=== PATIENT | female | born 1950 | race African-American/Black ===

== ENCOUNTER 2022-07-15 10:16 | Emergency (ER) | payer MEDICARE, SELFPAY ==
--- NOTE | 2022-07-15 10:25 | ED.LOWEXIN ---
HPI - Extremity Injury (Lower) General Chief Complaint: Extremity Injury, Lower Stated Complaint: Right Foot Pain Time Seen by Provider: 07/15/22 10:25 History of Present Illness HPI Narrative: Patient is a 72-year-old female who presents the urgent care with complaints of right foot pain for the last week. Patient states she noticed it after she wore a small heel to a wedding. Patient states the pain shoots all the way up to her right hip when she is walking. Patient has been using a cane to ambulate. Denies of any injury or fall. No other acute complaints. No acute distress noted. Patient aware of the plan of care. Some parts of this dictation were generated by voice recognition software and may contain typographical and/or grammatical inaccuracies. Related Data Home Medications Medication Instructions Recorded Confirmed losartan 50 mg-hydrochlorothiazide 1 tablet PO DAILY 07/15/22 07/15/22 12.5 mg tablet Allergies Allergy/AdvReac Type Severity Reaction Status Date / Time No Known Allergies Allergy Verified 07/15/22 10:41 Review of Systems Review of Systems: CONSTITUTIONAL: Denies fever, chills, or sweats. EYES: Denies visual changes, redness, or discharge. ENT: Denies rhinorrhea, congestion, sore throat, or otalgia. CARDIOVASCULAR: Denies chest pain, palpitations, or edema. RESPIRATORY: Denies cough or dyspnea. GASTROINTESTINAL: Denies abdominal pain, nausea, vomiting, or diarrhea. GENITOURINARY: Denies dysuria or hematuria. SKIN: Denies rash or itching. MUSCULOSKELETAL: Reports of right foot pain NEUROLOGIC: Denies headache, numbness, or weakness. All other systems reviewed are negative, except as documented in HPI. PMFSH Comments At the time of my signature, I reviewed and agree with the nursing past medical, surgical, social, and family history. There is no relevant family history pertinent to the patient complaint. Exam Narrative: GENERAL: This is a well-nourished, well-developed patient, in no apparent distress. HEAD: normocephalic, atraumatic. EYES: PERRL. Sclera clear/white. Vision is grossly intact. EARS: External ears normal NOSE: External nose normal with no obvious nasal discharge, nares without redness, no rhinorrhea. THROAT: Mucous membranes moist NECK: Neck supple SKIN: warm, intact with no suspicious lesions or rash, good texture and turgor. NEURO: awake, alert, and oriented to person, place and time. There were no obvious focal neurologic abnormalities. EXTREMITIES: Mild tenderness and edema noted to the plantar aspect of the right foot. Pain exacerbated with weightbearing or ambulation. Positive strong right pedal pulse with capillary refill less than 2 seconds. No obvious deformity, erythema or ecchymosis noted to the right lower extremity Course Course Level of Care: Express Care Visit Vital Signs Vital signs: Vital Signs Temperature 97.9 F 07/15/22 10:32 Pulse Rate 67 07/15/22 10:32 Respiratory Rate 20 07/15/22 10:32 Blood Pressure 140/77 07/15/22 10:32 Pulse Oximetry 100 07/15/22 10:32 Oxygen Delivery Room Air 07/15/22 10:32 Temperature 97.9 F 07/15/22 10:32 Pulse Rate 67 07/15/22 10:32 Respiratory Rate 20 07/15/22 10:32 Blood Pressure 140/77 07/15/22 10:32 Pulse Oximetry 100 07/15/22 10:32 Oxygen Delivery Room Air 07/15/22 10:32 Reviewed MDM - Extremity Injury (Lower) MDM Narrative Medical decision making narrative: Spoke to the patient regarding Planter fasciitis. Advised her to get a shoe insert to help with relief. The Dr. Gutierres's tend to be a better insert than those other [id number]. Use Tylenol/ibuprofen as needed. Keep the foot elevated with the use of ice and complete the steroid regimen as prescribed. Try to eliminate weightbearing for the next couple days to give the foot a rest. Be sure to eat and drink with your medications. Follow-up with the referred fruit thinner. Follow-up with your PCP within 2 to
[2022-07-15 10:32] VITALS: BP 140/77; PULSE 67; RESP 20; TEMP 36.6; O2SAT 100
== END 2022-07-15 10:55 | disposition home or self-care (01) ==
PROVIDERS: Emergency Provider Nurse Practitioner Family
DX: M72.2 Plantar fascial fibromatosis (principal); I10 Essential (primary) hypertension
CPT/HCPCS: 99213; G0463

== ENCOUNTER 2023-06-18 16:20 | Emergency (ER) | payer MEDICARE, SELFPAY ==
[2023-06-18 16:35] VITALS: BP 148/78; PULSE 59; RESP 16; TEMP 36.3; O2SAT 100
--- NOTE | 2023-06-18 16:52 | ED.BACK ---
HPI - Back Pain/Injury General Chief Complaint: Back Pain/Injury Stated Complaint: Left Flank Pain Time Seen by Provider: 06/18/23 16:52 Source: patient, RN notes reviewed and old records reviewed Mode of arrival: ambulatory Limitations: no limitations History of Present Illness HPI Narrative: 73 year old female presents to [facility] care with complaints of pain in left left upper back and in the left flank area after reaching up in her closet 2 weeks ago feeling a pull in her left back.. Patient reports that she has taken Tylenol and Ibuprofen, used Salonpas to area with some degree of discomfort continuing. Patient denies any shortness of breath or any pain with urination or burning. Patient denies any fall onto her left upper back or flank area.Patient can reproduce some of pain in her left back when he extends her left arm upward. MD elicited complaint: back pain Onset (ago): week(s) (2) Pain scale (0-10): 8 Similar Symptoms Previously: No Quality: aching Treatments prior to arrival: NSAIDS, acetaminophen and other (topical Lidocaine patch) Related Data Home Medications Medication Instructions Recorded Confirmed losartan 50 mg-hydrochlorothiazide 1 tablet PO DAILY 07/15/22 07/15/22 12.5 mg tablet Allergies Allergy/AdvReac Type Severity Reaction Status Date / Time No Known Allergies Allergy Verified 07/15/22 10:41 Review of Systems Review of Systems: CONSTITUTIONAL: Denies fever, chills, or sweats. CARDIOVASCULAR: Denies chest pain, palpitations, or edema. RESPIRATORY: Denies cough or dyspnea. GASTROINTESTINAL: Denies abdominal pain, nausea, vomiting, or diarrhea. GENITOURINARY: Denies dysuria or hematuria. SKIN: Denies rash or itching. MUSCULOSKELETAL: Reports left upper back pain and left flank area pain for 2 week duration. or myalgia. NEUROLOGIC: Denies headache, numbness, or weakness. All systems reviewed & are unremarkable except as noted in HPI and below [facility] Past Medical History Medical History (Updated 06/19/23 @ 12:04 by Bina Soto NP) Hypertension Social History Social History (Updated 06/19/23 @ 12:06 by Bina Soto NP) Smoking status: Never smoker Alcohol intake: unknown Substance use type: does not use Gender identity (if verbalized by the patient): Female Comments At time of signature, agree with nursing past medical, surgical, social and family history. There is no relevant family history pertinent to the presenting complaint Exam Narrative: GENERAL: Well-appearing, well-nourished, and in no acute distress. HEAD: Normocephalic, atraumatic. EYES: PERRLA and EOMI. NECK: Supple. No lymphadenopathy. CHEST: Clear to auscultation. No respiratory distress. SAO2 100% on room air HEART: Regular rate and rhythm. Distal pulses palpable and equal, cap refill <3 seconds ABDOMEN: Soft, nontender, nondistended, normal active bowel sounds, no palpable or pulsatile masses. No CVA tenderness MUSCULOSKELETAL: Normal range of motion and strength in all extremities; 5/5 strength with hip flexion and extension, dorsiflexion and extension, knee flexion and extension, plantar flexion and extension. Normal sensation in dermatomal distributions with sensitivity to light touch and pain. No midline back tenderness to palpation. No paraspinal tenderness. Transfers from lying to sitting to standing.Pain to left upper back and along left flank area partially reproduced when raising left arm upward described as aching, no dyspnea, or any urinary sympoms. SKIN: Warm, dry, no rash. No ecchymosis, erythema, open wounds to back. NEURO: No focal deficits. Alert and oriented x3. Reflexes intact. Normal gait. PSYCH: Normal mood and affect Course Course Emergency Course: Patient is aware of diagnosis, understands and agrees to treatment plan. Anticipatory guidance given. Patient agrees to follow-up as directed and is aware of reasons to seek care at the emergency department
== END 2023-06-18 17:14 | disposition home or self-care (01) ==
PROVIDERS: Emergency Provider Registered Nurse
DX: M54.6 Pain in thoracic spine (principal); R10.9 Unspecified abdominal pain; I10 Essential (primary) hypertension
CPT/HCPCS: 81003; 99213; G0463

== ENCOUNTER 2025-01-06 17:30 | Emergency (ER) | payer MEDICARE, SELFPAY ==
[2025-01-06 17:36] VITALS: BP 145/75; PULSE 75; RESP 20; TEMP 37.6; O2SAT 100
--- NOTE | 2025-01-06 17:41 | ED.URI ---
HPI - URI/Sore Throat General Chief Complaint: Upper Respiratory Infection Stated Complaint: aches/cough/headache Time Seen by Provider: 01/06/25 17:41 Source: patient, RN notes reviewed and old records reviewed Mode of arrival: ambulatory Limitations: no limitations History of Present Illness HPI Narrative: 74-year-old female presents to the [facility] with concerns for influenza. States that for 3 days she has had a headache, body aches, cough. Has not measured her temperature. Has been taking Coricidin. Reports she has had a flu exposure Onset (ago): day(s) (3) Related Data Home Medications ?Medication ?Instructions ?Recorded ?Confirmed ?Last Taken ?Type losartan 50 mg-hydrochlorothiazide 1 tablet PO DAILY 07/15/22 07/15/22 Unknown History 12.5 mg tablet Allergies Allergy/AdvReac Type Severity Reaction Status Date / Time No Known Allergies Allergy Verified 07/15/22 10:41 Review of Systems Review of Systems: All systems reviewed & are unremarkable except as noted in HPI and below Constitutional: Constitutional: Reports as per HPI, Reports body ache(s) and Reports headache(s) ENT: Reports system reviewed and no additional complaints, except as documented Cardiovascular: Cardiovascular: Reports no additional cardiovascular complaints, Denies chest pain and Denies dyspnea Respiratory: Respiratory: Reports as per HPI, Denies chest congestion, Reports cough and Denies dyspnea Musculoskeletal: Musculoskeletal: Reports no additional musculoskeletal complaints Integumentary/Breasts: Skin/Breast: Reports system reviewed and no additional complaints, except as docu PMFSH Past Medical History Medical History Hypertension Social History Social History Smoking status: Never smoker Alcohol intake: unknown Substance use type: does not use Gender identity (if verbalized by the patient): Female Comments At the time of my signature, I reviewed and agree with the nursing past medical, surgical, social, and family history. There is no relevant family history pertinent to the patient complaint. Exam Const: General: cooperative, healthy appearing, comfortable, no acute distress, well developed, alert and well nourished Nutritional Appearance: well nourished Orientation/consciousness: patient oriented x3 Limitations: no limitations HENMT: Head: normal to inspection Ears: hearing grossly normal bilaterally, external ears normal, TM's normal bilaterally, EAC's normal, mastoids normal and no periauricular adenopathy Face/Nose/Sinus: Normal external nose present Mouth: Yes Normal oral and palatal mucosa present, Yes lip normal, Yes tongue normal and Yes moist mucous membranes Eyes: General: appearance normal, both eyes and all related structures Alignment and Position: alignment normal Neck: Neck: normal visual inspection, full ROM, no lymphadenopathy and no meningeal signs Chest: Chest palpation & inspection: normal inspection of the chest Resp: Effort & Inspection: normal respiratory effort and able to speak in complete sentences Auscultation: clear to auscultation bilaterally, no crackles, no rales, no rhonchi and no wheezes Cardio: Rate: regular rate Skin: General skin exam: normal color and no rashes or lesions noted Neuro: General: patient oriented x3, gait normal, moves all extremities and no meningeal signs Cognition (Neuro): normal cognition Speech: normal speech Gait exam (Neuro): Normal gait present Extrem: General: normal to inspection, full ROM, capillary refill normal and normal gait Psych: Appearance: grossly normal and well kempt Mental Status: mental status grossly normal Speech and movement: Normal speech and movement present and Clear speech present Affect: normal affect Attitude: cooperative Course Course Level of Care: Express Care Visit Vital Signs Vital signs: Vital Signs Temperature 99.6 F 01/06/25 17:36 Pulse Rate 75 01/06/25 17:36 Respiratory Rate 20 01/06/25 17:36 Blood Pressure 145/75 H 01/06/25 17:36 Pulse Oximetry 100 01/06/25 17:36 Oxygen Delivery Room Air 01/06/25 17:36 Temperature 99.6 F 01/06/25 17:36 Pulse Rate 75 01/06/25 17:36 Respiratory Rate 20 01/06/25 17:36 Blood Pressure 145/75 H 01/06/25 17:36 Pulse Oximetry 100 01/06/25 17:36 Oxygen Delivery Room Air 01/06/25 17:36 Reviewed MDM - URI/Sore Throat MDM Narrative Medical decision making narrative: patient sitting comfortably in exam room. Nontoxic, vitals stable. Patient presents with 3 day history of URI symptoms. Flu and COVID were negative. Lungs were clear, no acute findings noted on exam. Patient is appropriate for outpatient treatment and follow-up Discharge instructions reviewed with patient, as well as provided in writing per nursing staff. The instructions also include specific and strict return/GO TO THE ER as well as f/u information. All questions have been answered, and the patient deny any further questions with discharge and discharge plan. Some parts of this dictation were generated by voice recognition software and may contain typographical and/or grammatical inaccuracies. Differential Diagnosis Differential diagnosis: Likely upper respiratory infection, otitis media, sinusitis, viral infection, bronchitis, influenza and pharyngitis Lab Data Labs: Lab Results 01/06/25 Range/Units 17:40 POC Influenza A Ag Negative (Negative) POC Influenza B Ag Negative (Negative) POC SARS CoV-2 Ag Negative (Negative) Reviewed reviewed Critical Care Time Critical Care Time Critical Care Time: No Discharge Plan Discharge Clinical Impression: Influenza-like illness Patient Disposition: Home, Self-Care Condition: Stable Instructions: Antibiotic Form, Upper Respiratory Infection (ED) Additional Instructions: Today your blood pressure was 145/75. Please follow-up with your primary care provider within 2 weeks to have this rechecked Your rapid COVID test were negative Your rapid flu test was negative Your symptoms are likely due to a viral illness, which is not treated with antibiotics. Typically viral infections last 7-10 days, can linger for couple of weeks. It is very important to treat your symptoms. Drink plenty of water, Gatorade, Pedialyte, ice pops or Jell-O. -Alternate Tylenol and Motrin per package directions for fever or pain. You can alternate every 4 hours -Antihistamine medication such as Zyrtec/Claritin/Sugar during the day can help improve symptoms. -doing daily nasal irrigations can help relieve pressure your sinuses. Things like a Neti pot -Use Flonase twice a day for 5 days then daily to help reduce the inflammation and dry up your sinuses. -You can also use Coricidin HBP. Be sure to drink plenty of water with this medication at least 8 ounces with every dose and it is important to drink 8 to 10 glasses of water per day. Water is a natural decongestant -Eat and drink things that are easy to swallow, like tea or soup, or popsicles. -Oral rinses such as: Salt water gargles and/or may use topical anesthetic (eg. Chloraseptic spray) or lozenges to relieve dryness or throat pain). -Frequent hand washing or hand ticket chopper assembler is one of the best ways to prevent spread of infection. -Using a vaporizer or humidifier at night will also help thin secretions and help with coughing up phlegm. -Follow up with primary care provider in 7-10 days if condition is not improving - For new or worsening symptoms go directly to the nearest ER Patient Language: Mexican Prescriptions: No Action losartan-hydrochlorothiazide 50-12.5 mg tablet 1 tablet PO DAILY cyclobenzaprine 10 mg tablet 10 mg PO HS Qty: 10 0RF Rx Instructions: take at bedtime do not drive or operate machinery while taking this medication prednisone 20 mg tablet 20 mg PO BID Qty: 10 0RF Follow-up/Referrals: PHYSICIAN NOT ON STAFF,NONSTAFF [Primary Care Provider] - Time of Disposition: 17:57
--- OUTSIDE RECORDS SUMMARY | 2025-01-06 17:41 | XMS_ITS | Referral Summary ---
Author Organization [facility] Address [address] [place] [address] Care Team Providers Care Machine Set Up Operator Paper Goods Name Role Phone Zoila Lira MD Primary Care Provid er Wes Alvarenga MD Unavailable [phone] Allergies Active Allergy Reactions Criticality Noted Date Comments Valsartan Rash Medium Reaction: rash, Medications cholecalciferol (VITAMIN D-3) 5,000 unit capsule Take 1 capsule (5,000 Units total) by mouth daily Active losartan-hydroC HLOROthiazide (HYZAAR) 50-12.5 mg per tablet Take 1 tablet by mouth daily 90 tablet 1 3 Active triamcinolone (KENALOG) 0.1 % creamIndication s:Contact dermatitis and eczema due to plant Apply to affected area 1-2 times daily as needed. Avoid face and groin. 30 g 5 4 07/12/20 25 Active rosuvastatin (CRESTOR) 10 mg tablet TAKE 1 TABLET BY MOUTH EVERY DAY 90 tablet 4 Active Additional Information Patient not taking.Reported on 09/28/2024 Active Problems Problem Noted Date Diagnosed Date Morbid (severe) obesity due to excess calories 0 01/29/2024 Encounter for Medicare annual wellness exam 10/2022 Assessment & Plan (09/26/2023 11:45 AM ASSOCIATE PROFESSOR OF GEOLOGY): -Discussed diet, exercise and lifestyle modifications. -Addressed all questions and concerns Encounter for screening colonoscopy 10/03/2021 Overview (10/03/2021): Added automatically from request for surgery [id number] Complex atypical endometrial hyperplasia 018 Overview (08/18/2018): Hysterectomy recommended, pt declined. Placed on Megace for now. Repeat EmBx recommended Prediabetes 06/19/2017 Assessment & Plan (06/19/2017 9:42 AM CDT): Pt needs to have [id number] P Mixed hyperlipidemia 06/19/2017 Assessment & Plan (06/19/2017 9:43 AM CDT): Lipid abnormalities are improving with treatment. Nutritional counseling was provided. Lipids will be reassessed 4mos. Obesity (BMI 30-39.9) 06/19/2017 Adiposity 08/13/2016 Overview (01/30/2017): Obesity Hypertension 08/13/2016 Overview (01/31/2017): Hypertension Assessment & Plan (09/26/2023 11:46 AM ASSOCIATE PROFESSOR OF GEOLOGY): Chronic, Controlled -Continue Losartan-HCTZ Assessment & Plan (06/19/2017 9:42 AM CDT): Hypertension is improving with treatment. Continue current treatment regimen. Dietary sodium restriction. Weight loss. Regular aerobic exercise. Blood pressure will be reassessed at the next regular appointment. Strain of neck muscle 10/06/2013 Overview (01/29/2017): Neck strain Back strain 10/06/2013 Overview (01/31/2017): Back strain Abnormal findings on diagnos tic imaging of other specified body structures Resolved Problems Problem Noted Date Diagnosed Date Resolved Date Diabetes mellitus 10/06/2013 09/25/2017 Overview (01/31/2017): Diabetes Immunizations Immunization Administration Dates Next Due Influenza, Unspecified 09/27/2024(Deferr ed: Patient decision),09/27/2023(Deferred: Patient decision),08/15/2020(Deferred: Patient Refused),08/18/2018(Deferred: Patient Refused) Pneumococcal Conjugate PCV 13 08/13/2016 Pneumococcal Polysaccharide PPV23 08/15/2020 Social History Tobacco Use Types Packs/Day Years Used Date Smoking Tobacco: Former Cigarettes Q uit: 07/16/1990 Smokeless Tobacco: Never Tobacco Cessation:Counseling Given: Not Answered Alcohol Use Standard Drinks/Week Comments No 0 (1 standard drink = 0.6 oz pur e alcohol) special occasions PHQ-2 Answer Date Recorded PHQ-2 Total Score (If total score is 3 or more points, staff should administer the PHQ-9) 0 09/28/2024 Comments No Sex and Gender Information Value Date Recorded Sex Assigned at Not on file Legal Sex Female 1:39 PM ASSOCIATE PROFESSOR OF GEOLOGY Gender Identity Female 07/31/2023 4:00 PM CDT Sexual Orientation Straight 03/01/2019 12 :49 PM CDT Last Filed Vital Signs Vital Sign Reading Time Taken Comments Blood Pressure 130/80 09/28/2024 10:51 AM ASSOCIATE PROFESSOR OF GEOLOGY Pulse 64 09/28/2024 10:51 AM ASSOCIATE PROFESSOR OF GEOLOGY Temperature 36.8 C (98.3 F) 08/07/2024 10:57 AM CDT Respiratory Rate 20 09/28/2024 10:5 1 AM ASSOCIATE PROFESSOR OF GEOLOGY Oxygen Saturation 98% 09/28/2024 10: 51 AM ASSOCIATE PROFESSOR OF GEOLOGY Inhaled Oxygen Concentration - - Weight 111.2 kg (245 lb 3.2 oz) 024 10:51 AM ASSOCIATE PROFESSOR OF GEOLOGY Height 172.7 cm (5' 7.99 ) 09/28/2024 1 0:51 AM ASSOCIATE PROFESSOR OF GEOLOGY Body Mass Index 37.29 09/28/2024 10:51 AM ASSOCIATE PROFESSOR OF GEOLOGY Plan of Treatment Not on file Procedures Procedure Name Priority Date/Time Associated Diagnosis Comments SCREENING MAMMOGRAM BILATERAL W RAAD Schedule Routine, Read Routine (OP Routine) 09/28/2024 12:34 PM ASSOCIATE PROFESSOR OF GEOLOGY Encounter for screening mammogram for malignant neoplasm of breast DEXA AXIAL SKELETON BONE DENSITY 1 OR MORE SITES Schedule Routine, Read Routine (OP Routine) 09/28/2024 11:52 AM ASSOCIATE PROFESSOR OF GEOLOGY Postmenopausal STOOL DNA COLOGUARD Routine 08/13/2022 9:05 AM CDT Colon cancer screening HEPATITIS C ANTIBODY Routine 11/30/2019 12:03 PM ASSOCIATE PROFESSOR OF GEOLOGY Encounter for hepatitis C screening test for low risk patient from Last 3 Months or Most Recently Relevant to Health Maintenance Results * Screening Mammogram Bilateral W Raad (09/28/2024 12:34 PM ASSOCIATE PROFESSOR OF GEOLOGY) Anatomical Region Laterality Modality Breast Bilateral Mammography 09/29/2024 8:41 AM ASSOCIATE PROFESSOR OF GEOLOGY Impressions 09/29/2024 8:41 AM ASSOCIATE PROFESSOR OF GEOLOGY No evidence of malignancy in either breast. FINAL ASSESSMENT: BI-RADS Category 2: Benign. RECOMMENDATION: Recommend return for annual screening mammogram in 12 months. Electronically signed by: Trisha Cid M.D. Narrative 09/29/2024 8:41 AM ASSOCIATE PROFESSOR OF GEOLOGY EXAMINATION: BILATERAL SCREENING MAMMOGRAM COMPARISON: 08/15/2023 and priors dating back to 2016 TECHNIQUE: Full-field 2D and digital breast tomosynthesis (DBT) images were obtained. CAD was utilized. BREAST PARENCHYMAL COMPOSITION: There are scattered areas of fibroglandular density. FINDINGS: There is no new suspicious mass, calcification, or distortion in either breast. The mammographic appearance of the bilateral breasts appears stable with comparisons. Zoilajennie Lira MD IM MAMMO PROCEDURES Final Result * Dexa Axial Skeleton Bone Density 1 or 2 Site (09/28/2024 11:52 AM ASSOCIATE PROFESSOR OF GEOLOGY) Anatomical Region Laterality Modality Body N/A Other 09/28/2024 1:05 PM ASSOCIATE PROFESSOR OF GEOLOGY Impressions 09/28/2024 1:05 PM ASSOCIATE PROFESSOR OF GEOLOGY Normal bone mineral density of lumbar spine, total hip and femoral neck. Electronically signed by: Panda Trujillo M.D. Narrative 09/28/2024 1:05 PM ASSOCIATE PROFESSOR OF GEOLOGY EXAMINATION: DEXA AXIAL SKELETON BONE DENSITY 1 OR MORE SITES DATE: 09/28/2024 1:00 PM HISTORY: 74 [id number] postmenopausal woman; postmenopausal COMPARISON: 08/12/2022 FINDINGS: The bone densitometry of the L1-L4 region, the left femoral neck and the total hip was calculated using dual-energy x-ray absorptiometry. Bone mineral density (BMD) of the lumbar spine (L1-L4): T-score 0.9, previously 1.2 Bone mineral density (BMD) of the femoral neck: T-score 0.1, previously -0.1 Bone mineral density (BMD) of the total hip: T-score 0.6, previously 0.8 Procedure Note Panda Trujillo MD - 09/28/2024 EXAMINATION: DEXA AXIAL SKELETON BONE DENSITY 1 OR MORE SITES DATE: 09/28/2024 1:00 PM HISTORY: 74 [id number] postmenopausal woman; postmenopausal COMPARISON: 08/12/2022 FINDINGS: The bone densitometry of the L1-L4 region, the left femoral neck and the total hip was calculated using dual-energy x-ray absorptiometry. Bone mineral density (BMD) of the lumbar spine (L1-L4): T-score 0.9, previously 1.2 Bone mineral density (BMD) of the femoral neck: T-score 0.1, previously -0.1 Bone mineral density (BMD) of the total hip: T-score 0.6, previously 0.8 IMPRESSION: Normal bone mineral density of lumbar spine, total hip and femoral neck. Electronically signed by: Panda Trujillo M.D. Zoila Lira MD [facility] DXA PROCEDURES F inal Result * Stool DNA - Cologuard (08/13/2022 9:05 AM CDT) Pathologist [facility] Stool DNA - Cologuard Negative Negative [facility] (CLIA #:[id number]) Comment: NEGATIVE TEST RESULT. A negative Cologuard result indicates a low likelihood that a colorectal cancer (CRC) or advanced adenoma (adenomatous polyps with more advanced pre-malignant features) is present. The chance that a person with a negative Cologuard test has a colorectal cancer is less than 1 in 1500 (negative predictive value >99.9%) or has an advanced adenoma is less than 5.3% (negative predictive value 94.7%). These data are based on a prospective cross-sectional study of 10,000 individuals at average risk for colorectal cancer who were screened with both Cologuard and colonoscopy. (Corie Howell al, N Engl J Med 2014;370(14):5489-8598) The normal value (reference range) for this assay is negative. COLOGUARD RE-SCREENING RECOMMENDATION: Periodic colorectal cancer screening is an important part of preventive healthcare for asymptomatic individuals at average risk for colorectal cancer. Following a negative Cologuard result, the [place] [employer] and U.S. Multi-Society Task Force screening guidelines recommend a Cologuard re-screening interval of 3 years. References: [place] [employer] Guideline for Colorectal Cancer Screening: https://www.cancer.org/cancer/noedm-jntlmr-piqeqw/knqjcyzcr-rgvrgekaf-qavfmep/ac s-rec ommendations.html.; Avery DK, Milad BLACKMON, Kota WhitfieldK, Colorectal Cancer Screening: Recommendations for Physicians and Patients from the U.S. Multi-Society Task Force on Colorectal Cancer Screening , Am J Gastroenterology 2017; 112:1826-5494. TEST DESCRIPTION: Composite algorithmic analysis of stool DNA-biomarkers with hemoglobin immunoassay. Quantitative values of individual biomarkers are not reportable and are not associated with individual biomarker result reference ranges. Cologuard is intended for colorectal cancer screening of adults of either sex, 45 years or older, who are at average-risk for colorectal cancer (CRC). Cologuard has been approved for use by the U.S. FDA. The performance of Cologuard was established in a cross sectional study of average-risk adults aged 50-84. Cologuard performance in patients ages 45 to 49 years was estimated by sub-group analysis of near-age groups. Colonoscopies performed for a positive result may find as the most clinically significant lesion: colorectal cancer [4.0%], advanced adenoma (including sessile serrated polyps greater than or equal to 1cm diameter) [20%] or non- advanced adenoma [31%]; or no colorectal neoplasia [45%]. These estimates are derived from a prospective cross-sectional screening study of 10,000 individuals at average risk for colorectal cancer who were screened with both Cologuard and colonoscopy. (Corie Haq, N Engl J Med 2014;370(14):0361-4368.) Cologuard may produce a false negative or false positive result (no colorectal cancer or precancerous polyp present at colonoscopy follow up). A negative Cologuard test result does not guarantee the absence of CRC or advanced adenoma (pre-cancer). The current Cologuard screening interval is every 3 years. ([place] [employer] and U.S. Multi-Society Task Force). Cologuard performance data in a 10,000 patient pivotal study using colonoscopy as the reference method can be accessed at the following location: www.FORA.tv/results. Additional description of the Cologuard test process, warnings and precautions can be found at www.cologuard.com. Stool 08/13/2022 9:05 AM CDT 08/14/2022 10:59 AM CDT Zoila Lira MD LAB BODY FLUIDS AND STOOLS ORDERABLES Final Result [facility] (CLIA #:[id number]) [address] [place] [address] * Hepatitis C antibody (11/30/2019 12:03 PM ASSOCIATE PROFESSOR OF GEOLOGY) Hep C Ab Negative Negative DHARMESH MUNGUIA Blood specimen (specimen) 11/30/2019 12:03 PM ASSOCIATE PROFESSOR OF GEOLOGY 11/30/2019 3:43 PM ASSOCIATE PROFESSOR OF GEOLOGY Zoila Lira MD LAB MICROBIOLOGY - G ENERAL ORDERABLES Final Result DHARMESH MUNGUIA [id number] [facility] [place] [address] from Last 3 Months or Most Recently Relevant to Health Maintenance Insurance MEDICARE [facility] MEDICARE [facility] AET[employer] SENIOR SUPPLEMENT MEDICARE [employer] SENIOR SUPPLEMENT Advance Directives For more information, please contact: [phone] * Full Code (Latest Code Status on File) Date Activated Date Inactivated Comments 07/22/2019 7:07 PM 07/23/2019 6:23 PM Care Teams Machine Set Up Operator Paper Goods Relationship Specialty Start Date End Date Zoila Lira MD [address] [facility] [address] [place] [address] PCP - General 06/24/11 [place] [address] [place] [address] Referring Physician Pulmonary Disease 12/20/22
--- OUTSIDE RECORDS SUMMARY | 2025-01-06 17:41 | XMS_ITS | Encounter Summary ---
Author Organization [facility] Address [address] [place] [address] Phone Care Team Providers Care Solar Designer/Installer Name Role Phone Zoila Lira MD Primary Care Provid er Wes Alvarenga MD Unavailable [phone] Encounter Details Date Type Department Care Team (Late st Contact Info) Description 09/30/2017 Orders Only [facility] ProviderJaime MD [address] [place] [id number] Social History Tobacco Use Types Packs/Day Years Used Date Smoking Tobacco: Never Smokeless Tobacco: Never Alcohol Use Standard Drinks/Week Comments No 0 (1 standard drink = 0.6 oz pur e alcohol) Comments Unknown Sex and Gender Information Value Date Recorded Sex Assigned at Not on file Legal Sex Female 1:39 PM PULL WORKER Gender Identity Female 07/31/2023 4:00 PM CDT Sexual Orientation Straight 03/01/2019 12 :49 PM CDT documented as of this encounter Plan of Treatment Not on file documented as of this encounter Procedures Procedure Name Priority Date/Time Associated Diagnosis Comments DISCHARGE LABORATORY CUMULATIVE REPORT 09/30/2017 12:00 AM PULL WORKER documented in this encounter Results * DISCHARGE LABORATORY CUMULATIVE REPORT (09/30/2017 12:00 AM PULL WORKER) Narrative 09/30/2017 12:00 AM PULL WORKER Ordered by an unspecified provider. us Historical Provider LAB BLOOD ORDERABLES Danna l Result documented in this encounter Visit Diagnoses Not on filedocumented in this encounter Care Teams Solar Designer/Installer Relationship Specialty Start Date End Date Zoila Lira MD [address] [place] [address] PCP - General 06/24/11 [place] [address] [place] [address] Referring Physician Pulmonary Disease 12/20/22 documented as of this encounter
--- OUTSIDE RECORDS SUMMARY | 2025-01-06 17:41 | XMS_ITS | Clinical Summary ---
Author Organization [facility] Address [facility] [place] [address] Care Team Providers Care Wafer Line Worker Name Role Phone Zoila Lira MD Primary Care Provid er Wes Alvarenga MD Unavailable [phone] Allergies Active Allergy Reactions Criticality Noted Date [...] 10/2022 Assessment & Plan (09/26/2023 11:45 AM MELT HOUSE CENTRIFUGAL OPERATOR): -Discussed diet, exercise and lifestyle modifications. -Addressed all questions and concerns Encounter for screening colonoscopy 10/03/2021 Overview (10/03/2021): Added automatically from request for surgery [id number] Complex atypical endometrial hyperplasia 018 Overview (08/18/2018): [...] Hypertension Assessment & Plan (09/26/2023 11:46 AM MELT HOUSE CENTRIFUGAL OPERATOR): Chronic, Controlled -Continue Losartan-HCTZ Assessment & Plan [...] PCV 13 08/13/2016 Pneumococcal Polysaccharide PPV23 08/15/2020 Surgical History Surgery Date Site/Laterality Comments DILATION AND CURETTAGE OF UTERUS OPERATIVE HYSTEROSCOPY 12/25/2017 - 01/24/2018 Polypectomy and myomectomy; Focal complex atypical hyperplasia TONSILLECTOMY HYSTERECTOMY OOPHORECTOMY SALPINGECTOMY CYSTOSCOPY URETEROSCOPY Medical History Medical History Date Comments HTN (hypertension) HTN Fibroids fibroids SVT (supraventricular tachycardia) ?SVT Complex atypical endometrial hyperplasia 2017 Hysterectomy recommended, pt declined. Placed on Megace for now. Repeat EmBx recommended Borderline diabetic Type 2 diabetes mellitus (HCC) Family History Medical History Relation Name Comments Diabetes Mother Heart disease Mother Hypertension Mother Diabetes Other 1 Family history of Diabetes mellitus; Hypertension Other 2 Family history of Hypertension; Other Other 3 Family history of CHF; Breast cancer Neg Hx Ovarian cancer Neg Hx Relation Name Status Comments Father Mother Other 1 Other 2 Other 3 Social History Tobacco Use Types Packs/Day Years [...] on file Legal Sex Female 1:39 PM MELT HOUSE CENTRIFUGAL OPERATOR Gender Identity Female 07/31/2023 4:00 PM CDT Sexual Orientation Straight 03/01/2019 12 :49 PM CDT Obstetrics History Para Term AB IAB SAB Ectopic Multiple Livin g Live Births 7 6 6 1 1 6 6 Date Outcome GA Total Labor Labor/2nd/3rd Weight Sex Type Anes PTL Myrna A1 A5 Name Clin Term Vag-Spo nt Term Vag-Spo nt Term Vag-Spo nt Term Vag-Spo nt Term Vag-Spo nt Term Vag-Spo nt SAB Last Filed Vital Signs Vital Sign Reading Time Taken Comments Blood Pressure 130/80 09/28/2024 10:51 AM MELT HOUSE CENTRIFUGAL OPERATOR Pulse 64 09/28/2024 10:51 AM MELT HOUSE CENTRIFUGAL OPERATOR Temperature 36.8 C (98.3 F) 08/07/2024 10:57 AM CDT Respiratory Rate 20 09/28/2024 10:5 1 AM MELT HOUSE CENTRIFUGAL OPERATOR Oxygen Saturation 98% 09/28/2024 10: 51 AM MELT HOUSE CENTRIFUGAL OPERATOR Inhaled Oxygen Concentration - - Weight 111.2 kg (245 lb 3.2 oz) 024 10:51 AM MELT HOUSE CENTRIFUGAL OPERATOR Height 172.7 cm (5' 7.99 ) 09/28/2024 1 0:51 AM MELT HOUSE CENTRIFUGAL OPERATOR Body Mass Index 37.29 09/28/2024 10:51 AM MELT HOUSE CENTRIFUGAL OPERATOR Plan of Treatment Health Maintenance Due Date Last Done Comments Hepatitis B Screening 1969 Zoster Vaccine (1 of 2) 01/28/2025 Post poned from 2001 (Insurance / Financial) Breast Cancer Screening-Mammogram 09/28/2025 09/28/2024, 08/15/2023, 08/12/2022, Additional history exists Depression Screening 09/28/2025 09/28/2024, 01/29/2024, 09/26/2023, Additional history exists Fall Risk Assessment 09/28/2025 09/28/2024, 01/29/2024, 09/26/2023, Additional history exists Well Visit 65+ 09/28/2025 09/28/2024, 12/2023, 09/26/2023, Additional history exists DTaP/Tdap/Td Vaccine (1 - Tdap) 10/25/2025 Postponed from 1962 (Insurance / Financial) Osteoporosis Screening-Bone Density Scan 09/28/2026 09/28/2024, 08/12/2022, 11/30/2019 Colon Cancer Screening-Colonoscopy 06/18/2033 06/18/2023 Hepatitis C Screening Completed 11/30/2019 Pneumococcal vaccine 65+ Discontinued 08/15/2020, 07/27 Colon Cancer Screening-DNA Stool Discontinued 08/13/2022 Colon Cancer Screening-FIT Discontinued 08/13/2022 Influenza Vaccine Discontinued Procedures Procedure Name Priority Date/Time Associated Diagnosis Comments SCREENING MAMMOGRAM BILATERAL W RAAD Schedule Routine, Read Routine (OP Routine) 09/28/2024 12:34 PM MELT HOUSE CENTRIFUGAL OPERATOR Encounter for screening mammogram for malignant neoplasm of breast DEXA AXIAL SKELETON BONE DENSITY 1 OR MORE SITES Schedule Routine, Read Routine (OP Routine) 09/28/2024 11:52 AM MELT HOUSE CENTRIFUGAL OPERATOR Postmenopausal STOOL DNA COLOGUARD Routine 08/13/2022 9:05 AM CDT Colon cancer screening HEPATITIS C ANTIBODY Routine 11/30/2019 12:03 PM MELT HOUSE CENTRIFUGAL OPERATOR Encounter for hepatitis C screening test for low risk patient from Last 3 Months or Most Recently Relevant to Health Maintenance Results * Screening Mammogram Bilateral W Raad (09/28/2024 12:34 PM MELT HOUSE CENTRIFUGAL OPERATOR) Anatomical Region Laterality Modality Breast Bilateral Mammography 09/29/2024 8:41 AM MELT HOUSE CENTRIFUGAL OPERATOR Impressions 09/29/2024 8:41 AM MELT HOUSE CENTRIFUGAL OPERATOR No evidence of malignancy in either breast. FINAL ASSESSMENT: BI-RADS Category 2: Benign. RECOMMENDATION: Recommend return for annual screening mammogram in 12 months. Electronically signed by: Trisha Cdi M.D. Narrative 09/29/2024 8:41 AM MELT HOUSE CENTRIFUGAL OPERATOR EXAMINATION: BILATERAL SCREENING MAMMOGRAM COMPARISON: 08/15/2023 and priors dating back to 2016 TECHNIQUE: Full-field 2D and digital breast tomosynthesis (DBT) images were obtained. CAD was utilized. BREAST PARENCHYMAL COMPOSITION: There are scattered areas of fibroglandular density. FINDINGS: There is no new suspicious mass, calcification, or distortion in either breast. The mammographic appearance of the bilateral breasts appears stable with comparisons. Zoila Lira MD IMG MAMMO PROCEDURES Final Result * Dexa Axial Skeleton Bone Density 1 or 2 Site (09/28/2024 11:52 AM MELT HOUSE CENTRIFUGAL OPERATOR) Anatomical Region Laterality Modality Body N/A Other 09/28/2024 1:05 PM MELT HOUSE CENTRIFUGAL OPERATOR Impressions 09/28/2024 1:05 PM MELT HOUSE CENTRIFUGAL OPERATOR Normal bone mineral density of lumbar spine, total hip and femoral neck. Electronically signed by: Panda Trujillo M.D. Narrative 09/28/2024 1:05 PM MELT HOUSE CENTRIFUGAL OPERATOR EXAMINATION: DEXA AXIAL SKELETON BONE DENSITY 1 OR MORE SITES DATE: 09/28/2024 1:00 PM HISTORY: 74 [id number] postmenopausal woman; postmenopausal COMPARISON: 08/12/2022 FINDINGS: The [...] SITES DATE: 09/28/2024 1:00 PM HISTORY: 74 [id number] postmenopausal woman; postmenopausal COMPARISON: 08/12/2022 FINDINGS: The [...] by: Panda Trujillo M.D. Zoila Lira MD [facility] [place] DXA PROCEDURES F inal Result * Stool DNA - Cologuard (08/13/2022 9:05 AM CDT) Pathologist [facility] Stool DNA - Cologuard Negative Negative [facility] (CLIA #:[id number]) Comment: NEGATIVE TEST RESULT. A negative Cologuard [...] screened with both Cologuard and colonoscopy. (Corie Piña et al, N Engl J Med 2014;370(14):9777-3410) The normal value (reference range) for this assay is negative. COLOGUARD RE-SCREENING RECOMMENDATION: Periodic colorectal cancer screening is an important part of preventive healthcare for asymptomatic individuals at average risk for colorectal cancer. Following a negative Cologuard result, the [employer] Cancer Society and U.S. Multi-Society Task Force screening guidelines recommend a Cologuard re-screening interval of 3 years. References: [place] Cancer Society Guideline for Colorectal Cancer Screening: https://www.cancer.org/cancer/dgjyf-supfiw-hlcmir/scxrwkfob-urngoaugk-mjdwaqt/ac s-rec ommendations.html.; Avery DK, Milad CR, Kota WhitfieldK, Colorectal Cancer Screening: Recommendations for Physicians and Patients from the U.S. Multi-Society Task Force on Colorectal Cancer Screening , Am J Gastroenterology 2017; 112:3938-7039. TEST DESCRIPTION: Composite algorithmic analysis of stool [...] (Corie Howell al, N Engl J Med 2014;370(14):7780-5618.) Cologuard may produce a false negative or false positive result (no colorectal cancer or precancerous polyp present at colonoscopy follow up). A negative Cologuard test result does not guarantee the absence of CRC or advanced adenoma (pre-cancer). The current Cologuard screening interval is every 3 years. ([employer] Cancer Society and U.S. Multi-Society Task Force). Cologuard performance data in a 10,000 patient pivotal study using colonoscopy as the reference method can be accessed at the following location: www.flo.do/results. Additional description of the Cologuard test process, warnings and precautions can be found at www.SecooogGFS ITrd.[place]. Stool 08/13/2022 9:05 AM CDT 08/14/2022 10:59 AM CDT Zoila Lira MD LAB BODY FLUIDS AND STOOLS ORDERABLES Final Result [facility] (CLIA #:[id number]) [address] [place] [address] * Hepatitis C antibody (11/30/2019 12:03 PM MELT HOUSE CENTRIFUGAL OPERATOR) Hep C Ab Negative Negative DHARMESH MUNGUIA Blood specimen (specimen) 11/30/2019 12:03 PM MELT HOUSE CENTRIFUGAL OPERATOR 11/30/2019 3:43 PM MELT HOUSE CENTRIFUGAL OPERATOR Zoila Lira MD LAB MICROBIOLOGY - G ENERAL ORDERABLES Final Result DHARMESH MUNGUIA [id number] Department [place] [address] from Last 3 Months or Most Recently Relevant to Health Maintenance Insurance MEDICARE [facility] MEDICARE [facility] AETNA SENIOR SUPPLEMENT MEDICARE AETNA SENIOR SUPPLEMENT Advance Directives For more information, please contact: [phone] * Full Code (Latest Code Status on File) Date Activated Date Inactivated Comments 07/22/2019 7:07 PM 07/23/2019 6:23 PM Care Teams Wafer Line Worker Relationship Specialty Start Date End Date Zoila Lira MD [address] [facility] [address] [place] [address] PCP - General 06/24/11 [place] [address] [facility] [address] [place] [address] Referring Physician Pulmonary Disease 12/20/22
--- OUTSIDE RECORDS SUMMARY | 2025-01-06 17:41 | XMS_ITS | Encounter Summary ---
Author Organization [facility] Address [address] [place] [address] Phone Care Team Providers Care Cartographic Designer Name Role Phone Zoila Lira MD Primary Care Provid er Wes Alvarenga MD Unavailable [phone] Encounter Details Date Type Department Care Team (Latest Contact Info) Description 11/26/2017 Orders Only [facility] CONVERSION Scanning, Provider Social History Tobacco Use Types Packs/Day Years Used Date Smoking Tobacco: Never Smokeless Tobacco: Never Alcohol Use Standard Drinks/Week Comments No 0 (1 standard drink = 0.6 oz pur e alcohol) Comments No Sex and Gender Information Value Date Recorded Sex Assigned at Not on file Legal Sex Female 1:39 PM NEEDLE LEADER Gender Identity Female 07/31/2023 4:00 PM CDT Sexual Orientation Straight 03/01/2019 12 :49 PM CDT documented as of this encounter Plan of Treatment Not on file documented as of this encounter Procedures Procedure Name Priority Date/Time Associated Diagnosis Comments OBSTETRIC/GYNECOLOGY ULTRASONOGRAPHY REPORT 11/26/2017 9:23 AM NEEDLE LEADER documented in this encounter Results * OBSTETRIC/GYNECOLOGY ULTRASONOGRAPHY REPORT (11/26/2017 9:23 AM NEEDLE LEADER) Anatomical Region Laterality Modality Ultrasound us Provider Scanning IMG OB US PROCEDURES Final Res ult documented in this encounter Visit Diagnoses Not on filedocumented in this encounter Care Teams Cartographic Designer Relationship Specialty Start Date End Date Zoila Lira MD [address] [facility] [address] [place] [address] PCP - General 06/24/11 [place] [address] [facility] [address] [place] [address] Referring Physician Pulmonary Disease 12/20/22 documented as of this encounter
[2025-01-06 18:00] LABS: EDCOVIDSCREEN Negative (Negative); EDINFLUASCREEN Negative (Negative); EDINFLUBSCREEN Negative (Negative)
== END 2025-01-06 18:04 | disposition home or self-care (01) ==
PROVIDERS: Emergency Provider Nurse Practitioner
DX: J11.1 Influenza due to unidentified influenza virus with other respiratory manifestations (principal); Z20.822 Contact with and (suspected) exposure to COVID-19; I10 Essential (primary) hypertension
CPT/HCPCS: 87426; 87804; 99212; G0463